=== PATIENT | male | born 1970 | race Caucasian/White ===

== ENCOUNTER 2022-01-05 06:36 | Emergency (ER) | payer BC, SELFPAY ==
[2022-01-05 06:46] VITALS: BP 136/96; PULSE 84; RESP 18; TEMP 35.9; O2SAT 96
--- NOTE | 2022-01-05 06:57 | ED_ITS ---
HPI - General Adult General Time Seen by Provider: 07:07 <Michael Goldman MD - Last Filed: 01/09/22 00:02> Date Seen: 01/05/22 <Michael Goldman MD - Last Filed: 01/09/22 00:02> Chief complaint: Abdominal Pain <Michael Goldman MD - Last Filed: 01/09/22 00:02> Stated complaint: Diarrhea for 5 days/unable to keep anything <Michael Goldman MD - Last Filed: 01/09/22 00:02> Time Seen by Provider: 01/05/22 06:45 <Michael Goldman MD - Last Filed: 01/09/22 00:02> Source: patient <Michael Goldman MD - Last Filed: 01/09/22 00:02> Mode of arrival: ambulatory <Michael Goldman MD - Last Filed: 01/09/22 00:02> Limitations: no limitations <Michael Goldman MD - Last Filed: 01/09/22 00:02> History of Present Illness HPI narrative: 51-year-old male with history of IBS who comes in today with 5 days of diarrhea. Also has some low abdominal cramping. Denies fever or chills. Did have some vomiting at the onset of this but none since. No nausea. Numerous liquid bowel movements daily, no blood in the stools. Denies urinary symptoms. Some lightheadedness and generalized weakness. Has not taken anything for his symptoms. <Michael Goldman MD - Last Filed: 01/09/22 00:02> Related Data Home medications: Previous Rx's Medication Instructions Recorded dicyclomine 10 mg capsule 10 mg PO TID PRN abdominal 01/05/22 cramping #21 caps diphenoxylate-atropine 2.5 1 tab PO DAILY PRN diarrhea #7 tabs 01/05/22 mg-0.025 mg tablet (Lomotil) hydrocodone 5 mg-acetaminophen 325 1 - 2 tab PO Q6H PRN pain #10 tabs 01/05/22 mg tablet <Michael Goldman MD - Last Filed: 01/09/22 00:02> Allergies/adverse reactions: Allergies Allergy/AdvReac Type Severity Reaction Status Date / Time No Known Drug Allergies Allergy Verified 01/05/22 06:50 <Michael Goldman MD - Last Filed: 01/09/22 00:02> Review of Systems Status of ROS: Reports: 10 or more systems reviewed and unremarkable except as noted in History and below <Michael Goldman MD - Last Filed: 01/09/22 00:02> PFSH PFS Social History: Social History Smoking Status: Never smoker Do you use any of these nicotine containing products: None Second hand tobacco smoke exposure: No How often do you have a drink containing alcohol: monthly or less How often do you have six or more drinks on one occasion: Less than monthly AUDIT-C Alcohol total score: 2 Non-prescribed substance use: marijuana (any form) Non-prescribed substance use details: [facility] service: No <Michael Goldman MD - Last Filed: 01/09/22 00:02> Exam Narrative: Exam Narrative: General: Well-developed and well-nourished, no acute distress Head: Atraumatic and normocephalic Eyes: Pupils are equal reactive, extraocular motions intact, conjunctiva clear ENT: External nose and ears are normal, posterior pharynx without erythema or exudate Neck: No midline cervical tenderness, full spontaneous range of motion the neck, trachea midline, no adenopathy Heart: Regular rate and rhythm no murmurs or thrills Lungs: Clear to auscultation bilaterally without wheezes or crackles Abdomen: Soft, suprapubic and left lower quadrant tenderness, nondistended with active bowel sounds Musculoskeletal: No tenderness, deformity, or edema Neurologic: Awake, alert, and oriented x3, no gross focal neurologic deficits, cranial nerves intact as tested Psych: Mood and affect are appropriate Skin: No rashes <Michael Goldman MD - Last Filed: 01/09/22 00:02> Const: Vital Signs, click to edit/add: Vital Signs - 24 hr 01/05/22 06:46 Temperature 96.7 F L Pulse Rate [Left P ulse Oximeter] 84 Respiratory Rate 18 Blood Pressure [Ri ght Upper Arm] 136/96 H Pulse Oximetry 96 Oxygen Delivery Me thod Room Air <Michael Goldman MD - Last Filed: 01/09/22 00:02> Vital Signs, click to edit/add: Vital Signs - 24 hr 01/05/22 06:46 Temperature 96.7 F L Pulse Rate [Left P ulse Oximeter] 84 Respiratory Rate 18 Blood Pressure [Ri ght Upper Arm] 136/96 H Pulse Oximetry 96 Oxygen Delivery Me thod Room Air <Eagle Milian MD - Last Filed: 01/07/22 00:14> Documenting provider has reviewed patient's vital signs: yes <Michael Goldman MD - Last Filed: 01/09/22 00:02> Course Course Hospital Course: Patient seen examined, prior records reviewed. Differential diagnosis includes but not limited to colitis, enteritis, diverticulitis, IBS, inflammatory bowel disease, dehydration, electrolyte disturbance, infectious diarrhea. Patient presents with diarrhea for 5 days. Vomiting initially but none now, also some abdominal cramping. On exam here, vital is stable, suprapubic and left lower quadrant tenderness. Symptoms are most consistent with his IBS but cannot exclude colitis or diverticulitis. Labs, IV fluids, CT scan ordered along with Lomotil. Likely will be signed out to oncoming provider. <Michael Goldman MD - Last Filed: 01/09/22 00:02> Reevaluation(s) Reevaluation #1: Received Mr. Santo in sign-out at change of shift. Following up with him notes that he is improved though I catch him as he is on his way to the bathroom again; another diarrheal episode. There was a question of some ingested bad chicken maybe the day of onset but notes that nobody else was sick who ate the chicken. He says overall he feels better. When his mouth became dry he became worried. Unable to break this episode at home with usual treatments of warm packs and fluids. He has had extensive testing preceding IBS diagnosis. Winces at one point in apparent cramping as we are talking. We discussed a number of treatment options available. I think also reasonable to do stool cultures given what I have seen in the community lately; sample has been collected. <Eagle Milian MD - Last Filed: 01/07/22 00:14> Reevaluation #2: Anticipating discharge home evaluating Mr. Santo again. He is clearly uncomfortable curled up in pain. Discussed options for further pain management considering Bentyl and opiate. In miscommunication IV is prematurely pulled. Ultimately he was given IM injection of Dilaudid prior to departure. <Eagle Milian MD - Last Filed: 01/07/22 00:14> Vital Signs Vital signs: Initial Vital Signs Temperature 96.7 F L 01/05/22 06:46 Temperature Source Temporal Artery Scan 01/05/22 06:46 Pulse Rate 84 01/05/22 06:46 Pulse Rhythm 01/05/22 06:46 Respiratory Rate 18 01/05/22 06:46 Blood Pressure 136/96 H 01/05/22 06:46 Blood Pressure Mean 109 01/05/22 06:46 Blood Pressure Position Sitting 01/05/22 06:46 Pulse Oximetry 96 01/05/22 06:46 Oxygen Delivery Method 01/05/22 06:46 Vital Signs Temperature 96.7 F L 01/05/22 06:46 Pulse Rate 84 01/05/22 06:46 Respiratory Rate 18 01/05/22 06:46 Blood Pressure 136/96 H 01/05/22 06:46 Pulse Oximetry 96 01/05/22 06:46 Oxygen Delivery Method 01/05/22 06:46 Temperature 96.7 F L 01/05/22 06:46 Pulse Rate 84 01/05/22 06:46 Respiratory Rate 18 01/05/22 06:46 Blood Pressure 136/96 H 01/05/22 06:46 Pulse Oximetry 96 01/05/22 06:46 Oxygen Delivery Method 01/05/22 06:46 <Mihcael Goldman MD - Last Filed: 01/09/22 00:02> Initial Vital Signs Temperature 96.7 F L 01/05/22 06:46 Temperature Source Temporal Artery Scan 01/05/22 06:46 Pulse Rate 84 01/05/22 06:46 Pulse Rhythm 01/05/22 06:46 Respiratory Rate 18 01/05/22 06:46 Blood Pressure 136/96 H 01/05/22 06:46 Blood Pressure Mean 109 01/05/22 06:46 Blood Pressure Position Sitting 01/05/22 06:46 Pulse Oximetry 96 01/05/22 06:46 Oxygen Delivery Method 01/05/22 06:46 Vital Signs Temperature 96.7 F L 01/05/22 06:46 Pulse Rate 84 01/05/22 06:46 Respiratory Rate 18 01/05/22 06:46 Blood Pressure 136/96 H 01/05/22 06:46 Pulse Oximetry 96 01/05/22 06:46 Oxygen Delivery Method 01/05/22 06:46 Temperature 96.7 F L 01/05/22 06:46 Pulse Rate 84 01/05/22 06:46 Respiratory Rate 18 01/05/22 06:46 Blood Pressure 136/96 H 01/05/22 06:46 Pulse Oximetry 96 01/05/22 06:46 Oxygen Delivery Method 01/05/22 06:46 <Eagle Milian MD - Last Filed: 01/07/22 00:14> Medical Decision Making MDM Narrative Medical decision making narrative: Did review these CT images and discussed these findings with Mr. Santo IMPRESSION: Mildly dilated fluid-filled loops of small bowel are seen throughout the abdomen. Suspect minimal wall thickening and mucosal enhancement with Vasa recta engorgement involving the colon. There is haziness of the mesentery with subcentimeter scattered lymph nodes which are favored to be reactive. Overall findings are suspicious for nonspecific infectious/inflammatory enterocolitis. There is also swirling at the root of the mesentery near around the superior mesenteric vein which may indicate a new internal hernia although there is no evidence of obstruction. <Eagle Milian MD - Last Filed: 01/07/22 00:14> Medical Records Medical records reviewed: Yes I reviewed the patient's medical records <Michael Goldman MD - Last Filed: 01/09/22 00:02> Lab Data Lab results reviewed: Yes I reviewed the patient's lab results <Michael Goldman MD - Last Filed: 01/09/22 00:02> Labs: Lab Results 01/05/22 01/05/22 01/05/22 Range/Units 07:27 07:27 09:26 WBC 7.14 (4.50-11.00) K/uL RBC 5.32 (4.30-5.90) m/uL Hgb 15.9 (13.5-17.5) gm/dL Hct 46.9 (37.0-53.0) % MCV 88 (80-100) fL MCH 30 (26-34) pg MCHC 34 (32-36) gm/dL RDW Coeff of Madie 11.6 (11.5-15.5) % Plt Count 223 (140-440) K/uL Neut % (Auto) 62.1 (42.0-72.0) % Lymph % (Auto) 26.1 (20-44) % [place] % (Auto) 7.7 (0.0-11.0) % Eos % (Auto) 3.5 (0.0-7.0) % Baso % (Auto) 0.3 (0.0-3.0) % Neut # (Auto) 4.44 (1.7-7.0) K/uL Lymph # (Auto) 1.86 (0.90-2.90) K/uL [place] # (Auto) 0.50 (0.00-0.90) K/UL Eos # (Auto) 0.25 (0.00-0.50) K/uL Baso # (Auto) 0.02 (0.00-0.30) K/uL Abs Immat Gran (auto) 0.02 (0.00-0.30) K/uL Sodium 139 (135-149) mmol/L Potassium 4.1 (3.6-5.1) mmol/L Chloride 107 (96-114) mmol/L Carbon Dioxide 23 (20-32) mmol/L BUN 16 (7-30) mg/dL Creatinine 0.9 (0.5-1.5) mg/dL Estimated GFR 102 ml/min Glucose 108 (60-115) mg/dL Calcium 8.5 (8.4-10.6) mg/dL C-Reactive Protein < 0.5 L (0.5-1.0) mg/dL Stl C.difficile Tox PCR Negative (Negative) St C. diff Tox Epid 027 PRESUMPTIVE NEGATIVE (Negative) <Michael Goldman MD - Last Filed: 01/09/22 00:02> Lab Results 01/05/22 01/05/22 01/05/22 Range/Units 07:27 07:27 09:26 WBC 7.14 (4.50-11.00) K/uL RBC 5.32 (4.30-5.90) m/uL Hgb 15.9 (13.5-17.5) gm/dL Hct 46.9 (37.0-53.0) % MCV 88 (80-100) fL MCH 30 (26-34) pg MCHC 34 (32-36) gm/dL RDW Coeff of Madie 11.6 (11.5-15.5) % Plt Count 223 (140-440) K/uL Neut % (Auto) 62.1 (42.0-72.0) % Lymph % (Auto) 26.1 (20-44) % [place] % (Auto) 7.7 (0.0-11.0) % Eos % (Auto) 3.5 (0.0-7.0) % Baso % (Auto) 0.3 (0.0-3.0) % Neut # (Auto) 4.44 (1.7-7.0) K/uL Lymph # (Auto) 1.86 (0.90-2.90) K/uL [place] # (Auto) 0.50 (0.00-0.90) K/UL Eos # (Auto) 0.25 (0.00-0.50) K/uL Baso # (Auto) 0.02 (0.00-0.30) K/uL Abs Immat Gran (auto) 0.02 (0.00-0.30) K/uL Sodium 139 (135-149) mmol/L Potassium 4.1 (3.6-5.1) mmol/L Chloride 107 (96-114) mmol/L Carbon Dioxide 23 (20-32) mmol/L BUN 16 (7-30) mg/dL Creatinine 0.9 (0.5-1.5) mg/dL Estimated GFR 102 ml/min Glucose 108 (60-115) mg/dL Calcium 8.5 (8.4-10.6) mg/dL C-Reactive Protein < 0.5 L (0.5-1.0) mg/dL Stl C.difficile Tox PCR Negative (Negative) St C. diff Tox Epid 027 PRESUMPTIVE NEGATIVE (Negative) <Eagle Milian MD - Last Filed: 01/07/22 00:14> Discharge Plan Discharge Clinical Impression: History of IBS, Diarrhea <Michael Goldman MD - Last Filed: 01/09/22 00:02> Patient Disposition: Home, Self-Care <Michael Goldman MD - Last Filed: 01/09/22 00:02> Condition: Stable <Michael Goldman MD - Last Filed: 01/09/22 00:02> Instructions: Irritable Bowel Syndrome (ED), Acute Diarrhea (ED) <Michael Godlman MD - Last Filed: 01/09/22 00:02> Additional Instructions: Continue to focus on hydration. I would think that meat in particular would be stressful in your stomach/abdomen. Return for uncontrolled pain, intractable vomiting, associated fever, copious diarrhea such that you are feeling dehydrated, lightheadedness, persistent rapid heart rate. You can trial these medications at this point. Stool cultures will be pending. <Michael Goldman MD - Last Filed: 01/09/22 00:02> Activity Level: No Restrictions <Michael Goldman MD - Last Filed: 01/09/22 00:02> No Restrictions <Eagle Milian MD - Last Filed: 01/07/22 00:14> Discharge Diet: Regular <Michael Goldman MD - Last Filed: 01/09/22 00:02> Regular <Eagle Milian MD - Last Filed: 01/07/22 00:14> Prescriptions: New dicyclomine 10 mg capsule 10 mg PO TID PRN (Reason: abdominal cramping) Qty: 21 0RF diphenoxylate-atropine [Lomotil] 2.5-0.025 mg tablet 1 tab PO DAILY PRN (Reason: diarrhea) Qty: 7 0RF hydrocodone-acetaminophen 5-325 mg tablet 1 - 2 tab PO Q6H PRN (Reason: pain) Qty: 10 0RF <Michael Goldman MD - Last Filed: 01/09/22 00:02> Follow Up/Referrals: Joel Curtis MD [Primary Care Provider] - <Michael Goldman MD - Last Filed: 01/09/22 00:02> Stand Alone Forms: MyHealth Info Instructions <Michael Goldman MD - Last Filed: 01/09/22 00:02>
--- NOTE | 2022-01-05 07:04 | CRLHL7_ITS ---
For Patients: As a result of the Century Cures Act, medical imaging exams and procedure reports are released immediately into your electronic medical record. You may view this report before your referring provider. If you have questions, please contact your health care provider. INDICATION: ABDOMEN PAIN, DIAHRREA HX OF IBS TECHNIQUE: CT abdomen and pelvis with 118 cc Omnipaque 370 IV contrast. COMPARISON: None. FINDINGS: The liver is normal in size, shape and attenuation. Gallbladder and biliary tree are normal. The spleen, adrenal glands and pancreas are within normal limits. The kidneys are unremarkable. The stomach is moderately distended without wall thickening. Mildly dilated fluid-filled loops of small bowel are seen throughout the abdomen. Suspect minimal wall thickening and mucosal enhancement with Vasa recta engorgement involving the colon. There is haziness of the mesentery with subcentimeter scattered lymph nodes which are favored to be reactive. No significant free fluid and no free air. Pelvic organs are unremarkable. The lower chest is unremarkable. IMPRESSION: Mildly dilated fluid-filled loops of small bowel are seen throughout the abdomen. Suspect minimal wall thickening and mucosal enhancement with Vasa recta engorgement involving the colon. There is haziness of the mesentery with subcentimeter scattered lymph nodes which are favored to be reactive. Overall findings are suspicious for nonspecific infectious/inflammatory enterocolitis. There is also swirling at the root of the mesentery near around the superior mesenteric vein which may indicate a new internal hernia although there is no evidence of obstruction. Please note that all CT scans at this facility use dose modulation, iterative reconstruction, and/or weight-based dosing when appropriate to reduce radiation dose to as low as reasonably achievable. Dictated by Tacos Arguello MD @ 01/05/2022 8:14:33 AM (Electronically Signed)
--- NOTE | 2022-01-05 07:30 | ED.NURSE ---
stool sample collected and sent to lab
[2022-01-05 07:34] LABS: Basophils Absolute Auto 0.02 K/uL (0.00-0.30); Basophils Percent Auto 0.3 % (0.0-3.0); Eosinophils Absolute Auto 0.25 K/uL (0.00-0.50); Eosinophils Percent Auto 3.5 % (0.0-7.0); Hematocrit 46.9 % (37.0-53.0); Hemoglobin* 15.9 gm/dL (13.5-17.5); Immature Granulocytes Abs Auto 0.02 K/uL (0.00-0.30); Lymphocytes Absolute Auto 1.86 K/uL (0.90-2.90); Lymphocytes Percent Auto 26.1 % (20-44); Mean Corpuscular HGB Conc 34 gm/dL (32-36); Mean Corpuscular Hemoglobin 30 pg (26-34); Mean Corpuscular Volume 88 fL (80-100); Monocytes Percent Auto 7.7 % (0.0-11.0); Neutrophils Absolute Auto 4.44 K/uL (1.7-7.0); Neutrophils Percent Auto 62.1 % (42.0-72.0); Platelet Count* 223 K/uL (140-440); RDW Coefficient of Variation % 11.6 % (11.5-15.5); Red Blood Count 5.32 m/uL (4.30-5.90); White Blood Count* 7.14 K/uL (4.50-11.00)
[2022-01-05 07:35] LABS: Slide Review Reflex No
[2022-01-05] MEDS: DIPHENOXYLATE-ATROP 2.5-0.025 TABLET 1 TAB PO (07:38)
[2022-01-05] MEDS: 0.9 % SODIUM CHLORIDE 1000 ml 1,000 ML IV (07:39)
[2022-01-05 07:50] LABS: Chloride* 107 mmol/L (96-114); Potassium* 4.1 mmol/L (3.6-5.1); Sodium* 139 mmol/L (135-149)
[2022-01-05 07:52] LABS: Creatinine* 0.9 mg/dL (0.5-1.5); Estimated Glomerular Filt Rate 102 ml/min
[2022-01-05 07:53] LABS: Blood Urea Nitrogen* 16 mg/dL (7-30); Carbon Dioxide* 23 mmol/L (20-32)
[2022-01-05 07:54] LABS: Calcium* 8.5 mg/dL (8.4-10.6); Glucose* 108 mg/dL (60-115)
[2022-01-05 07:56] LABS: C Reactive Protein* < 0.5 mg/dL (0.5-1.0)
[2022-01-05] MEDS: HYDROmorphone 0.5 mg/0.5 ml inj 1 MG IM (10:05)
[2022-01-05 11:21] LABS: C.Difficile Negative (Negative); CDIFFEPI 027 PRESUMPTIVE NEGATIVE (Negative)
== END 2022-01-05 10:10 | disposition home or self-care (01) ==
PROVIDERS: Family Medicine; Emergency Provider Family Medicine; PCP Family Medicine
DX: R19.7 Diarrhea, unspecified (principal)
CPT/HCPCS: 36415; 74177; 80048; 85025; 86140; 87045; 87046; 87427; 87493; 96372; 96374; 99284; 99285; A9270; J1170; J7030; Q9967

== ENCOUNTER 2022-07-29 18:23 | Emergency (ER) | payer BC, SELFPAY ==
[2022-07-29] VITALS (27 sets, daily range): BP systolic 125–154; BP diastolic 75–105; PULSE 69–95; RESP 16–20; TEMP 37.3; O2SAT 93–98; BMI 34.0
[2022-07-29] MEDS: 0.9 % SODIUM CHLORIDE 1000 ml 1,000 ML IV (19:55)
[2022-07-29] MEDS: KETOROLAC 30 MG/ML inj IVP (19:55)
[2022-07-29] MEDS: fentaNYL 100 MCG/2 ML inj 50 MCG IVP (19:56)
[2022-07-29 20:13] LABS: Basophils Absolute Auto 0.03 K/uL (0.00-0.30); Basophils Percent Auto 0.4 % (0.0-3.0); Eosinophils Absolute Auto 0.15 K/uL (0.00-0.50); Hemoglobin* 14.3 gm/dL (13.5-17.5); Immature Granulocytes Abs Auto 0.01 K/uL (0.00-0.30); Immature Granulocytes Pct Auto 0.1 %; Lymphocytes Absolute Auto 2.05 K/uL (0.90-2.90); Lymphocytes Percent Auto 26.9 % (20-44); Mean Corpuscular HGB Conc 36 gm/dL (32-36); Mean Corpuscular Hemoglobin 31 pg (26-34); Mean Corpuscular Volume 87 fL (80-100); Monocytes Percent Auto 8.5 % (0.0-11.0); Neutrophils Absolute Auto 4.72 K/uL (1.7-7.0); Neutrophils Percent Auto 62.1 % (42.0-72.0); Platelet Count* 201 K/uL (140-440); RDW Coefficient of Variation % 11.7 % (11.5-15.5); Red Blood Count 4.61 m/uL (4.30-5.90); White Blood Count* 7.61 K/uL (4.50-11.00)
[2022-07-29 20:30] LABS: Slide Review Reflex No
[2022-07-29 20:33] LABS: Albumin* 4.4 g/dL (3.3-5.0); Chloride* 107 mmol/L (96-114)
[2022-07-29 20:34] LABS: Potassium* 3.9 mmol/L (3.6-5.1); Sodium* 138 mmol/L (135-149)
[2022-07-29 20:36] LABS: Alkaline Phosphatase* 52 U/L (40-150); Aspartate Amino Transferase* 33 U/L (12-35); Bilirubin Direct* 0.2 mg/dL (0.0-0.5); Bilirubin Total* 1.1 mg/dL (0.1-1.5); Carbon Dioxide* 24 mmol/L (20-32); Est. Creatinine Clearance* 89.94; Estimated Glomerular Filt Rate 89 ml/min; Total Protein* 7.5 g/dL (6.0-8.3)
[2022-07-29 20:37] LABS: Alanine Aminotransferase* 33 U/L (4-50); Blood Urea Nitrogen* 17 mg/dL (7-30); Calcium* 8.6 mg/dL (8.4-10.6); Glucose* 92 mg/dL (60-115)
[2022-07-29 20:39] LABS: C Reactive Protein* 0.7 mg/dL (0.5-1.0)
[2022-07-29 20:40] LABS: Appearance Urine Clear (Clear); Bilirubin Urine Negative (Negative); Blood Urine Trace-lysed (Negative); Color Urine Yellow (Yellow); Glucose Urine Negative (Negative); Ketones Urine Negative (Negative); Leukocyte Esterase Urine Negative (Negative); Nitrite Urine Negative (Negative); Protein Urine Negative (Negative); Urobilinogen Urine 0.2 (0.2-1.0); pH Urine 6.5 (5.0-8.5)
[2022-07-29 20:51] LABS: RBC Urine 0-2 (0-2); Squamous Epithelial Cell Urine Few (None-Few); WBC Urine 0-2 (0-5)
[2022-07-29 21:01] LABS: Erythrocyte SedimentationRate* 4 mm/hr (2-15)
--- NOTE | 2022-07-29 21:06 | CRLHL7_ITS ---
For Patients: As a result of the 21st Century Cures Act, medical imaging exams and procedure reports are released immediately into your electronic medical record. You may view this report before your referring provider. If you have questions, please contact your health care provider. INDICATION: h/o k stones, B flank pain, IBS flare w diarrhea, hematochezia TECHNIQUE: CT abdomen and pelvis acquired with 95 cc Isovue 370 IV contrast. COMPARISON: None. FINDINGS: Lower chest: The visualized lower lungs are aerated. No pleural or pericardial effusion. ABDOMEN: Liver: Normal enhancement. No focal suspicious hepatic lesions. Gallbladder and biliary: Normal gallbladder without radiopaque stone. Normal caliber bile ducts. Spleen: Normal size and enhancement. Pancreas: Normal enhancement without peripancreatic inflammatory changes or ductal dilatation. Adrenal glands: Normal adrenal glands. Kidneys and ureters: Normal enhancement. No radio-opaque calculi. No hydroureteronephrosis. GI tract: The stomach is relatively decompressed. Normal caliber small and large bowel loops. Normal appendix. Vascular structures: Normal caliber abdominal aorta. Lymph nodes: No lymphadenopathy in the abdomen or pelvis by size criteria. Peritoneum: No free air, free fluid, or focal drainable fluid collection. Small fat containing left inguinal hernia. Clustered low-attenuation cystic foci just anterior to the body of the pancreas in the mesenteric fat measuring up to 36 millimeters, unchanged and favoring lymphangioma. PELVIS: Genitourinary system: Normal urinary bladder. Normal size prostate. SKELETAL STRUCTURES AND SOFT TISSUES: Multilevel lumbar spondylosis. IMPRESSION: 1. No acute abdominal or pelvic process. No obstruction. No hydroureteronephrosis. Normal appendix. 2. Small direct left fat containing inguinal hernia. 3. Clustered low-attenuation cystic foci just anterior to the body of the pancreas in the mesenteric fat measuring up to 36 millimeters, unchanged, indeterminate however favoring a lymphangioma. This can be confirmed with nonemergent abdominal MRI if clinically warranted. Please note that all CT scans at this facility use dose modulation, iterative reconstruction, and/or weight-based dosing when appropriate to reduce radiation dose to as low as reasonably achievable. Dictated by Eagle Mojica MD @ 07/29/2022 10:03:39 PM (Electronically Signed)
[2022-07-29] MEDS: HYDROmorphone 0.5 mg/0.5 ml inj 1 MG IVP (21:12)
--- NOTE | 2022-07-30 06:07 | ED.GENADULT ---
HPI - General Adult General Chief complaint: Back Injury/Pain Stated complaint: Lower Back Pain Time Seen by Provider: 07/29/22 18:44 History of Present Illness HPI narrative: 52-year-old man accompanied by spouse with concern of quite intense low back pain. Nonradicular. Just can not find a comfortable position. This is been increasing over the last 3 days. Does not recall specific injury; says he is careful with his lifting technique. 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 He has also been having abdominal pain cramping and with bright red blood in some diarrheal stool. Notes a history of IBS. History of kidney stones. He has not noted any hematuria most recently. Attempted ibuprofen acetaminophen without relief. Also spouse helped with application of Biofreeze but that was just more of a distracting pain he says. Pain is not actually affected by movement. Related Data Home Medications Medication Instructions Recorded Confirmed melatonin 3 mg capsule 3 mg PO DAILY 07/29/22 07/29/22 Previous Rx's Medication Instructions Recorded hyoscyamine sulfate 0.125 mg 0.25 mg PO TID PRN abdominal 07/29/22 disintegrating tablet cramping #20 tabs Allergies Allergy/AdvReac Type Severity Reaction Status Date / Time No Known Drug Allergies Allergy Verified 07/29/22 21:42 PFSH PFSH Social History Smoking Status: Never smoker Do you use any of these nicotine containing products: None Second hand tobacco smoke exposure: No How often do you have a drink containing alcohol: monthly or less How often do you have six or more drinks on one occasion: Less than monthly AUDIT-C Alcohol total score: 2 Non-prescribed substance use: marijuana (any form) Non-prescribed substance use details: [facility] service: No Exam Narrative: Exam Narrative: Clearly very uncomfortable, restless. Examination of back indicates area of pain is deep to the low bilateral perispinal musculature. Is not demonstrating notably in pain to percussion or palpation of this area though. Abdomen is generally tender. Soft. No peritoneal signs. Normoactive bowel sounds. Lungs are clear. Heart with elevated rate in irregular rhythm. Skin is warm and dry. Anal exam without evidence of bleeding at this time. Small hemorrhoidal noninflamed tissue at about 11:00 Const: Vital Signs, click to edit/add: Vital Signs - 24 hr 07/29/22 18:29 07/29/22 20:00 07/29/22 20:08 Temperature 99.2 F Pulse Rate 76 Pulse Rate [Pulse Oximeter] 95 79 Respiratory Rate 20 18 Blood Pressure Blood Pressure [Ri ght Upper Arm] 138/91 H 149/99 H Pulse Oximetry 96 94 94 Oxygen Delivery Me thod Room Air 07/29/22 20:15 07/29/22 20:34 07/29/22 20:35 Temperature Pulse Rate 79 79 77 Pulse Rate [Pulse Oximeter] Respiratory Rate 16 Blood Pressure 141/104 H 141/104 H Blood Pressure [Ri ght Upper Arm] Pulse Oximetry 95 96 95 Oxygen Delivery Me thod 07/29/22 20:36 07/29/22 20:45 07/29/22 21:00 Temperature Pulse Rate 76 77 73 Pulse Rate [Pulse Oximeter] Respiratory Rate Blood Pressure Blood Pressure [Ri ght Upper Arm] Pulse Oximetry 96 95 94 Oxygen Delivery Me thod 07/29/22 21:02 07/29/22 21:15 07/29/22 21:31 Temperature Pulse Rate 74 79 77 Pulse Rate [Pulse Oximeter] Respiratory Rate Blood Pressure 126/76 Blood Pressure [Ri ght Upper Arm] Pulse Oximetry 94 95 98 Oxygen Delivery Me thod 07/29/22 21:33 07/29/22 21:45 07/29/22 22:00 Temperature Pulse Rate 74 74 75 Pulse Rate [Pulse Oximeter] Respiratory Rate Blood Pressure 152/98 H Blood Pressure [Ri ght Upper Arm] Pulse Oximetry 98 94 95 Oxygen Delivery Me thod 07/29/22 22:02 07/29/22 22:15 07/29/22 22:30 Temperature Pulse Rate 71 74 72 Pulse Rate [Pulse Oximeter] Respiratory Rate Blood Pressure 125/75 Blood Pressure [Ri ght Upper Arm] Pulse Oximetry 93 93 94 Oxygen Delivery Me thod 07/29/22 22:32 07/29/22 22:45 07/29/22 23:00 Temperature Pulse Rate 73 69 73 Pulse Rate [Pulse Oximeter] Respiratory Rate Blood Pressure 154/95 H Blood Pressure [Ri ght Upper Arm] Pulse Oximetry 95 95 93 Oxygen Delivery Me thod 07/29/22 23:01 07/29/22 23:02 07/29/22 23:15 Temperature Pulse Rate 75 77 75 Pulse Rate [Pulse Oximeter] Respiratory Rate Blood Pressure 149/101 H Blood Pressure [Ri ght Upper Arm] Pulse Oximetry 94 94 94 Oxygen Delivery Me thod 07/29/22 23:30 07/29/22 23:31 07/29/22 23:45 Temperature Pulse Rate 72 72 71 Pulse Rate [Pulse Oximeter] Respiratory Rate Blood Pressure 154/105 H Blood Pressure [Ri ght Upper Arm] Pulse Oximetry 95 96 95 Oxygen Delivery Me thod Documenting provider has reviewed patient's vital signs: yes Course Vital Signs Vital signs: Initial Vital Signs Temperature 99.2 F 07/29/22 18:29 Temperature Source Temporal Artery Scan 07/29/22 18:29 Pulse Rate 95 07/29/22 18:29 Respiratory Rate 20 07/29/22 18:29 Blood Pressure 138/91 H 07/29/22 18:29 Blood Pressure Mean 106 H 07/29/22 18:29 Blood Pressure Position Sitting 07/29/22 18:29 Pulse Oximetry 96 07/29/22 18:29 Oxygen Delivery Method Room Air 07/29/22 18:29 Vital Signs Temperature 99.2 F 07/29/22 18:29 Pulse Rate 95 07/29/22 18:29 Respiratory Rate 20 07/29/22 18:29 Blood Pressure 138/91 H 07/29/22 18:29 Pulse Oximetry 96 07/29/22 18:29 Oxygen Delivery Method Room Air 07/29/22 18:29 Temperature 99.2 F 07/29/22 18:29 Pulse Rate 71 07/29/22 23:45 Respiratory Rate 16 07/29/22 20:34 Blood Pressure 154/105 H 07/29/22 23:31 Pulse Oximetry 95 07/29/22 23:45 Oxygen Delivery Method Room Air 07/29/22 18:29 Medical Decision Making MDM Narrative Medical decision making narrative: I suspect flare of IBS contributing to generalized abdominal pain. Imaging prior that I reviewed was relatively unremarkable. Difficult to reproduce back pain. No clear traumatic etiology. Wondering if this is simply tension. Will evaluate further for red flags looking for evidence of potential infection. Possibly ureteral stone and colic however do not think the story is so good for that and symmetry is unusual. Colitis possible. Pancreatitis. Inflammatory bowel disorder. IV initiated. Dosed with ketorolac and given normal saline IV. Pain sub present and given dosing of fentanyl. This does offer some pain relief but did return. Given ultimately dose of Dilaudid. Able to rest. Labs are overall reassuring. Only trace amount of blood on urine dipstick. With degree of discomfort had been having duration I do not think it is unreasonable to check again CT imaging. About my read of CT imaging and most impressed with osteoarthritic changes of the low spine loss of disc height between L5 and sacrum. I wonder if some of this pain is related to the low back/musculoskeletal though it is not reproducible with movement really. Radiology over-read as below IMPRESSION: 1. No acute abdominal or pelvic process. No obstruction. No hydroureteronephrosis. Normal appendix. 2. Small direct left fat containing inguinal hernia. 3. Clustered low-attenuation cystic foci just anterior to the body of the pancreas in the mesenteric fat measuring up to 36 millimeters, unchanged, indeterminate however favoring a lymphangioma. This can be confirmed with nonemergent abdominal MRI if clinically warranted. I discussed these findings and lack there of with Mr. Santo and his . Overall improved. I think IBS flare is possibly contributing to spasming of abdominal wall and potentially back musculature. See patient discharge plan. Lab Data Lab results reviewed: Yes I reviewed the patient's lab results Labs: Lab Results 07/29/22 07/29/22 Range/Units 19:41 20:00 WBC 7.61 (4.50-11.00) K/uL RBC 4.61 (4.30-5.90) m/uL Hgb 14.3 (13.5-17.5) gm/dL Hct 40.0 (37.0-53.0) % MCV 87 (80-100) fL MCH 31 (26-34) pg MCHC 36 (32-36) gm/dL RDW Coeff of Madie 11.7 (11.5-15.5) % Plt Count 201 (140-440) K/uL Neut % (Auto) 62.1 (42.0-72.0) % Lymph % (Auto) 26.9 (20-44) % Adams % (Auto) 8.5 (0.0-11.0) % Eos % (Auto) 2.0 (0.0-7.0) % Baso % (Auto) 0.4 (0.0-3.0) % Neut # (Auto) 4.72 (1.7-7.0) K/uL Lymph # (Auto) 2.05 (0.90-2.90) K/uL Adams # (Auto) 0.60 (0.00-0.90) K/UL Eos # (Auto) 0.15 (0.00-0.50) K/uL Baso # (Auto) 0.03 (0.00-0.30) K/uL ESR 4 (2-15) mm/hr Sodium 138 (135-149) mmol/L Potassium 3.9 (3.6-5.1) mmol/L Chloride 107 (96-114) mmol/L Carbon Dioxide 24 (20-32) mmol/L BUN 17 (7-30) mg/dL Creatinine 1.0 (0.5-1.5) mg/dL Estimated Creat Clear 89.94 Estimated GFR 89 ml/min Glucose 92 (60-115) mg/dL Calcium 8.6 (8.4-10.6) mg/dL Total Bilirubin 1.1 (0.1-1.5) mg/dL Direct Bilirubin 0.2 (0.0-0.5) mg/dL AST 33 (12-35) U/L ALT 33 (4-50) U/L Alkaline Phosphatase 52 (40-150) U/L C-Reactive Protein 0.7 (0.5-1.0) mg/dL Total Protein 7.5 (6.0-8.3) g/dL Albumin 4.4 (3.3-5.0) g/dL Urine Color Yellow (Yellow) Urine Appearance Clear (Clear) Urine pH 6.5 (5.0-8.5) Ur Specific [place] 1.020 (1.000-1.030) Urine Protein Negative (Negative) Urine Glucose (UA) Negative (Negative) Urine Ketones Negative (Negative) Urine Blood Trace-lysed A (Negative) Urine Nitrite Negative (Negative) Urine Bilirubin Negative (Negative) Urine Urobilinogen 0.2 (0.2-1.0) Ur Leukocyte Esterase Negative (Negative) Urine RBC 0-2 (0-2) Urine WBC 0-2 (0-5) Ur Squamous Epith Cells Few (None-Few) Urine Bacteria None (None) Discharge Plan Discharge Clinical Impression: Low back pain, Lymphangioma, Abdominal pain Patient Disposition: Home w/ Parent or Adult Condition: Improved Instructions: Abdominal Pain (ED) Additional Instructions: Focus on hydration. I would call to reestablish in primary care partly to get that colonoscopy scheduled and then consider follow-up imaging as noted in the report of the abdominal CT you have. Think it would be good to be seen to discuss treatments and prevention of irritable bowel flares. On follow-up you might also recheck urine though it is such a small amount of blood was noted on the dipstick, hard to quantify any significance. Return for intractable diarrhea, increasing bleeding, uncontrolled pain, associated fever. Percocet from [facility]. Hyoscyamine for cramps. Prescriptions: New hyoscyamine sulfate 0.125 mg tablet,disintegrating 0.25 mg PO TID PRN (Reason: abdominal cramping) Qty: 20 0RF No Action melatonin 3 mg capsule 3 mg PO DAILY Follow Up/Referrals: oJel Curtis MD [Primary Care Provider] - Stand Alone Forms: [employer] Info Instructions
== END 2022-07-30 | disposition home or self-care (01) ==
PROVIDERS: Emergency Provider Family Medicine; PCP Family Medicine
DX: M54.50 Low back pain, unspecified (principal); D18.1 Lymphangioma, any site
CPT/HCPCS: 36415; 74177; 80048; 80076; 81001; 85025; 85651; 86140; 96374; 96375; 99284; J1170; J1885; J3010; J7030; Q9967

== ENCOUNTER 2022-10-23 06:43 | Outpatient (CLI) | payer BC, SELFPAY ==
--- NOTE | 2022-10-23 07:16 | P.ANHP_ITS ---
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 (ICD-10) PTSD (post-traumatic stress disorder) ?F43.10 - Post-traumatic stress disorder, unspecified (ICD-10) Anxiety ?F41.9 - Anxiety disorder, unspecified (ICD-10) ADD (attention deficit disorder) ?F98.8 - Other specified behavioral and emotional disorders with onset us ually occurring in childhood and adolescence (ICD-10) IBS (irritable bowel syndrome) ?K58.9 - Irritable bowel syndrome without diarrhea (ICD-10) Social History Smoking Status: Never smoker Do you use any of these nicotine containing products: None Second hand tobacco smoke exposure: No How often do you have a drink containing alcohol: monthly or less How often do you have six or more drinks on one occasion: Less than monthly AUDIT-C Alcohol total score: 2 Non-prescribed substance use: marijuana (any form) Non-prescribed substance use details: [facility] service: No Meds Home Medications and Allergies Home Medications Medication Instructions Recorded Confirmed Type melatonin 3 mg capsule 3 mg PO DAILY 07/29/22 08/21/22 History Allergies Allergy/AdvReac Type Severity Reaction Status Date / Time No Known Drug Allergies Allergy Verified 08/20/22 13:04 Exam Const Documenting provider has reviewed patient's vital signs: yes Common normals: no apparent distress, oriented x3, healthy appearing, alert and well nourished General appearance: cooperative and comfortable Orientation/consciousness: Yes awake HENMT Common normals: normocephalic Head and scalp: normocephalic Neck & C-Spine Common normals: full ROM Chest Chest: symmetrical chest wall rise Resp Common normals: normal respiratory effort, no retractions, no use of accessory muscles and clear to auscultation bilaterally Auscultation: clear to auscultation bilaterally Cardio Common normals: regular rate, regular rhythm, S1 normal heart sound, S2 normal heart sound and no murmurs Rate: regular rate Rhythm: regular rhythm Heart sounds: S1 normal and S2 normal Neuro Common normals: oriented x3 Sensorium/orientation: awake and alert Assessment and Plan Assessment and plan (1) IBS (irritable bowel syndrome): Status: Acute (2) Personal history of colonic polyps: Status: Acute Plan ok to proceed with colonoscopy and sedation
--- NOTE | 2022-10-23 07:16 | W.ANESCHARGE ---
Anesthesia Charges Start Date/Time Anesthesia Start Date: 10/23/22 Anesthesia Start Time: 07:45 Stop Date/Time Anesthesia Stop Date: 10/23/22 Anesthesia Stop Time: 08:08
--- NOTE | 2022-10-23 08:10 | W.ANESCHARGE ---
Anesthesia Charges Start Date/Time Anesthesia Start Date: 10/23/22 Anesthesia Start Time: 07:45 Stop Date/Time Anesthesia Stop Date: 10/23/22 Anesthesia Stop Time: 08:08
== END 2022-10-23 06:44 | disposition home or self-care (01) ==
LOC: OP CLINIC 06:43
PROVIDERS: PCP Family Medicine; Visit Provider Internal Medicine
DX: Z12.11 Encounter for screening for malignant neoplasm of colon (principal); K63.5 Polyp of colon; Z86.010 Personal history of colon polyps
CPT/HCPCS: 00811; 45380; 88305; J2704

== ENCOUNTER 2023-05-17 10:41 | Outpatient (RCR) | payer BC, SELFPAY | END 2023-09-14 23:59 | disposition home or self-care (01) | PROVIDERS: PCP Family Medicine; Visit Provider Family Medicine | DX: M54.2 Cervicalgia (principal); R29.3 Abnormal posture; Z51.89 Encounter for other specified aftercare; Z74.09 Other reduced mobility; R29.898 Other symptoms and signs involving the musculoskeletal system | CPT/HCPCS: 97110; 97140; 97162 ==

== ENCOUNTER 2023-06-24 08:10 | Outpatient (CLI) | payer BC, SELFPAY | END 2023-06-24 08:11 | disposition home or self-care (01) | LOC: NFLDREF 06-30 12:20 | PROVIDERS: PCP Family Medicine; Referring Provider Family Medicine; Visit Provider Family Medicine | DX: K58.9 Irritable bowel syndrome, unspecified (principal); N52.9 Male erectile dysfunction, unspecified; R79.89 Other specified abnormal findings of blood chemistry | CPT/HCPCS: 80053; 84270; 84402; 84403 ==

== ENCOUNTER 2023-11-09 19:03 | Outpatient (CLI) | payer BC, SELFPAY ==
--- OUTSIDE RECORDS SUMMARY | 2023-11-09 19:06 | XMS_ITS | Clinical Summary ---
Author Organization [facility] Address [place], [place] [address] Care Team Providers Care Mustanger Name Role Phone Parmjit Mcgregor MD Unavailable [phone] Essie Fernandez GUARD ENTRANCE REGISTRAR Unavailable Unavailable Pcp, No Primary Care Provider Unavailabl e Allergies Active Allergy Reactions Criticality Noted Date Comments Other Ellsworth-3s Other - Describe In Comment Field 04/02/2006 PN: TAMI CM1: >>> NO CONTRAST ADVERSE REACTION <<< Reaction : Medications Medication Sig Dispensed Refills Start Date End Date Status omeprazole-sodium bicarbonate, 20-1100 mg, (ZEGERID OTC) 20-1.1 mg-gram cap Take 1 capsule by mouth once daily before a meal. 0 01/09/2014 Active multivitamin (MVI) tablet Take 1 tablet by mouth once daily. 0 04/09/2016 Active Fish Oil-Ellsworth-3 Fatty Acids (FISH OIL) 300-500 mg cap Take by mouth. 0 11/16/2017 A ctive Bifidobacterium Infantis (ALIGN) cap Take 1 capsule by mouth. 0 08/14/2019 Active ascorbic acid, vitamin C, (VITAMIN C) 250 mg tablet Take 1 tablet by mouth once daily. 0 04/19/2020 Active cholecalciferol (Vitamin D) 1,000 unit tablet Take 1 Tablet (1,000 units) by mouth once daily. 0 07/17/2020 Active CPAPIndications:AMISH (obstructive sleep apnea) New CPAP machine for home use at pressure: 5-18 cmw , Heated humidifier x 1 q 5 yr, Humidifier chamber x 1 q 6 mo, Full face mask x1 q 3mos, with cushion x 1 q mo, Heated tubing x 1 q 3 mo, Headgear x 1 q 6 mo, Filters: Disposable x 2 q mo non-disposable filters x1 q 6mo, Length of Need: 99 months, Frequency of use: Daily 1 Device 11 07/17/2020 Active LORazepam (ATIVAN) 2 mg tabIndications:PTSD (post-traumatic stress disorder) Take 0.5-1 Tablets (1-2 mg) by mouth once daily if needed for Anxiety or Sleep. 30 Tablet 2 09/26/2020 Active ibuprofen (ADVIL; MOTRIN) 800 mg tabletIndications:A cute bilateral low back pain without sciatica Take 1 Tablet (800 mg) by mouth three times daily with meals. 30 Tablet 1 07/31/2022 Active Active Problems Problem Noted Date Diagnosed Date Elevated blood pressure read ing without diagnosis of hypertension 10/16/2021 Hyperopia of both eyes 02/24/2019 Insomnia 10/27/2018 Overview: July 2019: Patient self stopped mirtazapine. History of syncope 10/11/2018 Overview: October 2018: Syncope in home, [facility] work up. Carpal tunnel syndrome, bilateral 08/24/2018 Overview: EMG August 2018 shows moderate to severe bilateral carpal tunnel mononeuropathy changes. Hypertriglyceridemia 07/28/2018 Erectile dysfunction 07/28/2018 Overview: July 2018: new diagnosis, symptoms started about the time of starting sertraline (Zoloft). Starting revatio. (Sildenafil). Controlled substance agreement signed 03/24/2018 Overview: 03/01/18 signed .Essie Fernandez DNP, [employer]FRICAN [employer]UD[employer] PROFESSOR, BUTTON MAKER/psychiatry ADHD (attention deficit hype ractivity disorder), combined type 03/01/2018 Overview: Jan [address] Thomas for formal ADHD assessment and testing did support a diagnosis of ADHD, combined type. Essie Fernandez, BUTTON MAKER started Adderall XR Feb 2018. Attention and concentration deficit 11/16/2017 Nightmares associated with c hronic post-traumatic stress disorder 01/18/2017 Insomnia secondary to depression with anxiety Overview: July 2019: Patient stopped mirtazapine. PTSD (post-traumatic stress disorder) 04/09/2016 Overview: July 2019: Patient self tapered sertraline (Zoloft) to off completely. Also self stopped mirtazapine. September 2019: therapy visits with [facility], Camron Rodrigues P.H.D.,M.P.H., AMELIA (generalized anxiety disorder) 04/09/2016 Overview: July 2019: Patient self tapered sertraline (Zoloft) to off completely. Also self stopped mirtazapine. September 2019: therapy visits with [facility], Camron Rodrigues P.H.D.,M.P.H[facility] Lateral epicondylitis of left elbow 03/01/2015 Overview: Cortisone injection Jan 2015, 1 month out pain 90% improved. May 2015: Colleen did bilateral lateral epicondyle injections. August 2015: Bilateral lateral epicondyle injections by Dr. Mitch Macias. Anxiety 09/20/2014 Overview: Symptoms of anxiety and medications around 2004 or so. September 2014: starting sertraline (Zoloft). Nov 2015: doubled sertraline (Zoloft) to 100mg and referred to both psychology and psychiatry. July 2019: Patient self tapered sertraline (Zoloft) to off completely. Also self stopped mirtazapine. September 2019: therapy visits with [facility], Camron Rodrigues P.H.D.,M.P.H[facility] Personal history of colonic polyps 04/13/2013 Overview: Colonoscopy 05/2013 polyps repeat in 5 years Colonoscopy Done , unusual MAC at [facility] by Dr. Eden, adenomatous polyp, due 5 years, so due August 2023. Rectal bleeding 04/13/2013 Overview: Flexible sigmoidoscopy- 07/2013 1 cm of erythema- mechanical prolapse Presbyopia 04/19/2009 Encounters Date Type Department Care Team Description 10/12/2023 3:20 PM CDT Office Visit [facility] [address] [place] [address] Dick Meier, OD Eye Exam ([facility]) 10/12/2023 Travel 10/01/2023 Transcribe Orders [facility] [address] [place] [address] [place] from Last 3 Months Immunizations Name Administration Dates Next Due HepA-HepB (Twinrix) 06/09/2007,05/11/2007 Inactivated Polio Vaccine 05/11/2007 Influenza Virus, Unspecified 03/15/2007,01/23/20 06 Influenza, IIV3 (Age 6-35 mos) 01/23/2010 Influenza, IIV4 02/25/2020, 9,12/09/2015,12/10,01/09/2014 Meningococcal Vaccine (Menactra) 04/14/2007 Meningococcal Vaccine (Menomune) 04/14/2007 Td (Age >=7 Years) 07/21/1999 Td, Preservative Free (age >= 7 Years) 8 Tdap 04/13/2019,01/09/2014,04/14/2007 Typhoid (oral) 05/11/2007 Family History Medical History Relation Name Comments Cancer Father Lung, was smoke r Heart attack Maternal Grandfather Arthritis Mother RA Psychiatric illness Mother Anxiety and Depression. Diabetes Paternal Grandmother Arthritis Sister RA Relation Name Status Comments Father Maternal Grandfather Mother Alive Paternal Grandmother Sister Alive Social History Tobacco Use Types Packs/Day Years Used Date Smoking Tobacco: Never Smokeless Tobacco: Former Snuff, Chew Quit: 07/07/2018 Tobacco Cessation:Ready to Q uit: No; Counseling Given: Yes Alcohol Use Standard Drinks/Week Comments Yes 0 (1 standard drink = 0.6 oz pure alcohol) Infrequently/occational, 2020, social PHQ-2 Answer Date Recorded PHQ-2 TOTAL SCORE 2 10/16/2021 Social Connections Answer Date Recorded Frequency of Communication with Friends and Fami ly Not on file 08/05/2023 Financial Resource Strain Answer Date R ecorded Difficulty of Paying Living Expenses 3 07/31/2022 Difficulty of Paying Living Expenses Not on file 07/31/2022 Food Insecurity Answer Date Recorded Worried About Running Out of Food in the Last Ye ar 1 07/31/2022 Transportation Needs Answer Date Record ed Lack of Transportation (Medical) 1 07/31/2022 Housing Stability Answer Date Recorded Unable to Pay for Housing in the Last Year 1 07/31/2022 Sex and Gender Information Value Date Recorded Sex Assigned at Not on file Gender Identity Not on file Sexual Orientation Not on file Obstetrics History Last Filed Vital Signs Vital Sign Reading Time Taken Comments Blood Pressure 138/84 07/31/2022 1:45 PM CDT Pulse 88 07/31/2022 1:42 PM CDT Temperature 36.8 ??C (98.2 ??F) 04/13/2019 9:11 PM CS T Respiratory Rate 18 04/13/2019 9:11 PM TERMITE CONTROL REPRESENTATIVE Oxygen Saturation 95% 04/13/2019 9:11 PM TERMITE CONTROL REPRESENTATIVE Inhaled Oxygen Concentration - - Weight 109.3 kg (240 lb 14.4 oz) 07/31/2022 1:42 PM CDT Height 177.8 cm (5' 10) 07/31/2022 1:42 PM CDT Body Mass Index 34.57 07/31/2022 1:42 PM CDT Plan of Treatment Health Maintenance Due Date Last Done Comments HIV for age 15-65 1983 Zoster (shingles) series for age 50+ (1 of 2) 2018 Depression screening for age 12+ 10/16/2022 10/16/2021, 09/26/2020, 09/26/2020, Additional history exists COVID-19 vaccine series ( season) 2022 BMI (ht and wt on same day) for age 18+ 08/01/2023 07/31/2022, 12/05/2021, 10/16/2021, Additional history exists Colonoscopy through age 75 08/13/2023 08/12/2018, Influenza for age 50-64 12/12/2023 02/25/20 20, 02/24/2019, 12/09/2015, Additional history exists Lipids for age 45-75 10/16/2026 10/16/2021, 05/10/2020, 07/21/2018, Additional history exists Tetanus booster 04/13/2029 04/13/2019, 12/13, 04/14/2007, Additional history exists Tdap Completed 04/13/2019, 12/13, 04/14/2007 Hepatitis C screening for age 18-79 Completed 10/16/2021 Pneumococcal series for age 6-64 Aged Out No longer eligible based on patient's age to complete this topic Procedures Procedure Name Priority Date/Time Associated Diagnosis Comments ANTI HCV Routine 10/16/2021 8:29 AM CDT Need for hepatitis C screening test LIPID PANEL W REFLEX MEASURED LDL Routine 10/16/2021 8:29 AM CDT Screening cholesterol level SCAN-COLONOSCOPY 08/12/2018 11:3 0 AM CDT from Last 3 Months or Most Recently Relevant to Health Maintenance Results * (ABNORMAL) LIPID PANEL W REFLEX MEASURED LDL (10/16/2021 8:29 AM CDT) CHOLESTEROL,TOTAL 134 100 - 199 mg/dL 10/16/2021 7:24 PM CDT [facility] TRIGLYCERIDES 83 <150 mg/dL 10/16/2021 7:24 PM CDT [facility] HDL CHOLESTEROL 39(L) >40 mg/dL 7:24 PM CDT [facility] NON-HDL CHOLESTEROL 95 <145 mg/dl 10/16/2021 7:24 PM CDT [facility] CHOL/HDL RATIO 3.44 <4.50 10/16/2021 7:24 PM CDT [facility] LDL CHOLESTEROL 78 <=130 mg/dL 10/16/2021 7:24 PM CDT [facility] VLDL CHOLESTEROL 17 <=30 mg/dL 10/16/2021 7:24 PM CDT [facility] PROVIDER ORDERED STATUS FASTING 10/16/2021 7:24 PM CDT [facility] Blood BLOOD SPECIMEN / Unknown Venipuncture / Unknown 10/16/2021 8:29 AM CDT 10/16/2021 8:29 AM CDT Joel Curtis MD [facility]STR[facility] [address] [place] [id number], [place] * ANTI HCV (10/16/2021 8:29 AM CDT) HEPATITIS C ANTIBODY Non-React dequan Non-React dequan 10/16/2021 6:30 PM CDT [facility] Comment:Antibodies to HCV no t detected; does not exclude the possibility of exposure to HCV. Blood BLOOD SPECIMEN / Unknown Venipuncture / Unknown 10/16/2021 8:29 AM CDT 10/16/2021 8:29 AM CDT Joel Curtis MD SEND OUTS Performing Organization Address City/[facility]/ZIP Co de Phone Number [facility] [address] [place] [phone], [place] * SCAN-COLONOSCOPY (08/12/2018 11:30 AM CDT) Narrative Procedure Note Kevin Eden MD - 08/12/2018 10:28 AM CDT [facility] [address] [place] [address], [address], [place] [address] Patient Name: Taurus Santo Gender: Male Exam Date: 08/12/2018 Visit Number: [id number] Age: 48 Years Date of : 1970 Attending MD: Kevin Eden MD Medical Record#: [id number] Procedure: Colonoscopy Indications: Previous adenomatous polyp(s) Referring MD: Joel Curtis MD Primary MD: Joel Curtis MD Medications: Admitting Medications: 0.9% Normal Saline at TKO Intra Procedure Medications: Patient received monitored anesthesia care. Complications: No immediate complications Procedure: An examination of the heart and lungs was performed and found to be withinacceptable limits. The patient was therefore deemed a reasonablecandidate for endoscopy and sedation. The risks and benefits of the procedure were explained to the patient.After obtaining informed consent, the patient received monitoredanesthesia care and I passed the scope without difficulty via the rectum to the ileum. The appendiceal orificeand ic valve were identified. The scope was retroflexed during theexamination The quality of the prep was excellent (Miralax/Gatorade/2tablets Bisacodyl/Magnesium Citrate). This was a complete examination throughout the entire colon. Findings: Polyp location: transverse colon. Quantity: 1. Size: 3 mm. Polyp shape:sessile. Maneuver: polypectomy was performed with a cold biopsy forceps. Removal: complete. Retrieval: complete. Bleeding: none. Remainder of the exam is normal. Impression: Polyp of transverse colon, unspecified type impression comments: [facility] [address] [facility] single [facility]. Flexsig [place] [address] Iglesias, distalproctitis by endoscopy, no inflammation on biopsies. Preliminary Plan: Repeat colonoscopy in 5 years Pathology Results: A: COLON, TRANSVERSE, POLYP: 1. Tubular adenoma 2. Negative for high grade dysplasia 3. Per the colonoscopy report: a. Polyp size: 3 mm b. Resection: Complete c. Retrieval: Complete MICROSCOPIC A: Performed Electronically signed by: Juan R Bowman MD Orders Instruction(s)/Education: Instruction/Education Timeframe Assessment Colon Cancer Prevention D12.3 Colon Polyps D12.3 Final Plan: Return for a colonoscopy in 5 years. We will attempt to contact you at appropriate intervals via U.S. mail. Wemay not be able to find you or contact you at that time, therefore youshould know that the responsibility for following our recommendation restswith you. If you don't hear from us at the time your procedure is due,please contact our office to schedule an appointment. If your contactinformation should change, please contact our office so that we can updateyour record. Additional Comments: The small polyp removed at your colonoscopy was an adenoma. I wouldrecommend a repeat colonoscopy therefore in 5 years. Be well. _Electronically signed by: Kevin Eden MD 08/12/2018 cc: Joel Curtis MD cc: Joel Curtis MD Kevin Eden MD OTHER from Last 3 Months or Most Recently Relevant to Health Maintenance Care Teams Mustanger Relationship Specialty Start Date End Date Pcp, No . PCP - General 07/15/22 Parmjit Mcgregor MD [address] [place] [address] Rheumatology Rheumatology 05/10/15 Essie Fernandez NP [address] [place] [address] Psychiatry Nurse Practitioner 04/10/16
--- OUTSIDE RECORDS SUMMARY | 2023-11-09 19:06 | XMS_ITS | Clinical Summary ---
Author Organization [facility] Address [address] [place] [id number] Care Team Providers Care Commercial Credit Head Name Role Phone Davide Long MD Primary Care Provider [phone] Allergies No known active allergies Medications Medication Sig Dispensed Refills Start Date End Date Status amphetamine-dextroamph etamine (ADDERALL) 30 MG tabletIndications:Atte ntion Deficit Hyperactivity Disorder Take 30 mg by mouth daily Active omeprazole-sodium bicarbonate 20-1100 MG CAPS per capsule Take by mouth every morning (before breakfast) Active Multiple Vitamins-Minerals (MULTIVITAL PO) Active ciprofloxacin (CIPRO) 500 MG tabletIndications:Cyst ic lesion of abdominal viscera Take 1 tablet (500 mg) by mouth 2 times daily 10 tablet 11/20/2022 Active Social History Tobacco Use Types Packs/Day Years Used Date Smoking Tobacco: Former Cigarettes Smokeless Tobacco: Former Alcohol Use Standard Drinks/Week Comments Yes 0 (1 standard drink = 0.6 oz pur e alcohol) weekends Adolescent Education Answer Date Record ed Getting School Help Needed Not on file 01/24 Sex and Gender Information Value Date Recorded Sex Assigned at Not on file Gender Identity Not on file Sexual Orientation Not on file Last Filed Vital Signs Vital Sign Reading Time Taken Comments Blood Pressure 121/72 11/20/2022 2:10 PM CDT Pulse 66 11/20/2022 2:15 PM CDT Temperature - - Respiratory Rate 9 11/20/2022 2:15 PM CDT Oxygen Saturation 93% 11/20/2022 2:15 PM CDT Inhaled Oxygen Concentration - - Weight 107 kg (235 lb 14.3 oz) 11/20/2022 12:46 PM CDT Height 177 cm (5' 9.69) 11/20/2022 12:46 PM CDT Body Mass Index 34.15 11/20/2022 12:46 PM CDT Plan of Treatment Upcoming Encounters Date Type Department Care Team (Latest Contact Info) Description 11/12/2023 2:00 PM CDT Hospital Encounter [facility] [address] [phone] Johana Mcdonald MD [facility] [address] [place] [address] [address] [id number] 11/12/2023 2:00 PM CDT - 11/12/2023 2:45 PM CDT Surgery [facility] [address] [phone] Johana Mcdonald MD [facility] [address] [place] [address] [address] [address] Endoscopic Ultrasound with Fine Needle Aspiration Scheduled Procedures Name Priority Associated Diagnoses Date/Ti me ESOPHAGOGASTRODUODENOSCOPY, WITH FINE NEEDLE ASPIRATION BIOPSY, WITH ENDOSCOPIC ULTRASOUND GUIDANCE Pancreatic cyst 11/12/2023 2:00 PM CDT Health Maintenance Due Date Last Done Comments ADVANCE CARE PLANNING 1970 ANNUAL REVIEW OF HM ORDERS 1970 CT COLONOGRAPHY 1970 FIT 1970 FLEX SIG 1970 GLUCOSE 1970 sDNA (Cologuard) 1970 COLONOSCOPY 1978 COLORECTAL CANCER SCREENING 1978 HIV SCREENING 1983 HEPATITIS C SCREENING 1986 IPV IMMUNIZATION (2 of 3 - Adult catch-up series) 06/08/2007 05/11/2007 HEPATITIS B IMMUNIZATION (3 of 3 - Hep B Twinrix 3-dose series) 11/09/2007 06/09/2007, 05/11/2007 LIPID 2008 LUNG CANCER SCREENING 2018 ZOSTER IMMUNIZATION (1 of 2) 2018 YEARLY PREVENTIVE VISIT 10/16/2022 10/16/2021, 04/19 COVID-19 Vaccine ( season) 2022 PHQ-2 (once per calendar year) 2023 INFLUENZA VACCINE (#1) 2023 0, 02/24/2019, 12/09/2015, Additional history exists DTAP/TDAP/TD IMMUNIZATION (5 - Td or Tdap) 04/13/2029 04/13/2019, 01/09/2014, 04/14/2007, Additional history exists MENINGITIS IMMUNIZATION Aged Out 04/14/2007, 04/14 No longer eligible based on patient's age to complete this topic HPV IMMUNIZATION Aged Out No longer e ligible based on patient's age to complete this topic Pneumococcal Vaccine: Pediatrics (0 to 5 Years) and At-Risk Patients (6 to 64 Years) Aged Out No longer eligible based on patient's age to complete this topic RSV MONOCLONAL ANTIBODY Aged Out No l onger eligible based on patient's age to complete this topic Care Teams Commercial Credit Head Relationship Specialty Start Date End Date Davide Long MD PCP - General Family Medicine 10/27/23
--- OUTSIDE RECORDS SUMMARY | 2023-11-09 19:06 | XMS_ITS | Referral Summary ---
Author Organization [facility] Address [address] [place] [address] Care Team Providers Care Mixer Operator Raw Salt Name Role Phone Davide Long MD Primary Care Provider [phone] Allergies No known active allergies Medications Medication [...] Description 11/12/2023 2:00 PM CDT Hospital Encounter [facility] [address] [phone] Johana Mcdonald MD [facility] [address] [place] [address] [address] [address] 11/12/2023 2:00 PM CDT - 11/12/2023 2:45 PM CDT Surgery [facility] [address] [phone] Johana Mcdonald MD [facility] [address] [place] [address] [address] [address] Endoscopic Ultrasound with Fine Needle Aspiration Scheduled Procedures Name Priority Associated Diagnoses Date/Ti me ESOPHAGOGASTRODUODENOSCOPY, WITH FINE NEEDLE ASPIRATION BIOPSY, WITH ENDOSCOPIC ULTRASOUND GUIDANCE Pancreatic cyst 11/12/2023 2:00 PM CDT Care Teams Mixer Operator Raw Salt Relationship Specialty Start Date End Date Davide Long MD PCP - General Family Medicine 10/27/23
--- OUTSIDE RECORDS SUMMARY | 2023-11-09 19:06 | XMS_ITS | Continuity of Care Document ---
Author Name [facility] Organization [facility] Care Team Providers Care [employer] Assistant Manager Name Role Phone [facility] Unavailable Unavailable Problems Combined list of problems from Department of Defense and Veterans [facility] facilities. It does not include entries that were removed or entered in error. Problem Status Onset Date Problem Type Date of Resolution Comments Source Allergic Rhinitis (SCT 32130751) Active Condition [facility] Anxiety (SCT 16509109) Active Condition [facility] Attention Deficit Hyperactivity Disorder (SCT 322282692) Active Condition [facility] Chronic pain Active Condition [facility] Chronic Post-Traumatic Stress Disorder (SCT 005810934) Active Condition [facility] Essential hypertension Active Condition [facility] Exposure to potentially hazardous substance (SCT 131934228852126) Active Condition Jul 19 4 Entered By: ALY RILEY Comment: Entered automatically through [employer] Problem List documentation program [facility] GERD - Gastro-Esophagea l Reflux Disease (SCT 639739910) Active Condition [facility] Insomnia (SCT 604990992) Active Condition [facility] Irritable Bowel Syndrome (SCT 90937346) Active Condition [facility] Obstructive Sleep Apnea of Adult (SCT 9160913651245) Active Condition [facility] Polyp Colon (SCT 74943044) Active Condition [facility] Diagnosis: ICD-10-CM F43.12 Post-traumatic stress disorder, chronic Active Diagnosis [facility] Diagnosis: ICD-10-CM K58.9 Irritable bowel syndrome without diarrhea Active Diagnosis [facility] Diagnosis: ICD-10-CM H93.13 Tinnitus, bilateral Active Diagnosis [facility] Diagnosis: ICD-10-CM I10 Essential (primary) hypertension Active Diagnosis [facility] Diagnosis: ICD-10-CM K58.2 Mixed irritable bowel syndrome Active Diagnosis [facility] Diagnosis: ICD-10-CM Z01.118 Encntr for exam of ears and hearing w oth abnormal findings Active Diagnosis [facility] Diagnosis: ICD-10-CM K63.5 Polyp of colon Active Diagnosis [facility] Medications Combined list of outpatient medications from Department of Defense and Veterans [facility] facilities.Medications provided include 1) outpatient medications from the last 15 months, and 2) patient-reported medications. Medication Details Route Status Patient Instructions Prescription Expires Prescription Number Last Dispense Date Ordering Provider Order Date Order Qty Source AMLODIPINE BESYLATE 2.5MG TAB AMLODIPI NE BESYLATE 2.5MG TAB Disconti nued TAKE ONE TABLET BY MOUTH EVERY DAY FOR BLOOD PRESSURE FOR BLOOD PRESSURE August 20, 2023 30 August 20, 2024 [id number] August 25, 2023 JEREMY MCFARLAND [facility] ORAL DISCONT INUED (EDIT) 08/20/2024 [id number] Hamzah MCFARLAND 2023 30 [facility] AMLODIPINE BESYLATE 5MG TAB AMLODIPI NE BESYLATE 5MG TAB Active TAKE ONE TABLET BY MOUTH EVERY DAY FOR BLOOD PRESSURE FOR BLOOD PRESSURE Sep 24, 2023 90 Sep 24, 2024 [id number] Oct 03, 2023 JEREMY MCFARLAND [facility] ORAL ACTIVE 09/24/2024 [id number] Hamzah MCFARLAND 2023 90 [facility] AMLODIPINE BESYLATE 5MG TAB AMLODIPI NE BESYLATE 5MG TAB Disconti nued TAKE ONE TABLET BY MOUTH EVERY DAY FOR BLOOD PRESSURE FOR BLOOD PRESSURE September 10, 2023 30 Sep 10, 2024 [id number] September 10, 2023 JEREMY MCFARLAND [facility] ORAL DISCONT INUED (EDIT) 09/10/2024 [id number] Hamzah MCFARLAND 2023 30 [facility] AMOXICILLIN TRIHYDRATE 500MG/CLAVU LANATE K 125MG TAB AMOXICIL RAYSHAWN TRIHYDRA TE 500MG/CL AVULANAT E K 125MG TAB Non-VA TAKE ONE TABLET EVERY DAY NEEDED Jul 15, 2023 Non-VA Document ed by: JEREMY MCFARLAND Document ed at: [facility] ACTIVE Hamzah MCFARLAND 2023 [facility] AMPHETAMINE /DEXTROAMPH ETAMINE RESIN COMPLEX 30MG CAP,SA AMPHETAM INE/DEXT ROAMPHET AMINE RESIN COMPLEX 30MG CAP,SA TAKE ONE CAPSULE BY MOUTH EVERY MORNING FOR ATTENTIO N FOR ATTENTIO N Oct 06, 2023 28 Nov 05, 2023 [id number] Oct 06, 2023 MARTHA DIAMOND [facility] ORAL 11/05/2023 [id number] Da DIAMOND 2023 28 [facility] AMPHETAMINE /DEXTROAMPH ETAMINE RESIN COMPLEX 30MG CAP,SA AMPHETAM INE/DEXT ROAMPHET AMINE RESIN COMPLEX 30MG CAP,SA TAKE ONE CAPSULE BY MOUTH EVERY MORNING FOR ATTENTIO N FOR ATTENTIO N September 01, 2023 28 Oct 01, 2023 [id number] September 01, 2023 MARTHA DIAMOND [facility] ORAL 10/01/2023 [id number] Da DIAMOND 2023 28 [facility] AMPHETAMINE /DEXTROAMPH ETAMINE RESIN COMPLEX 30MG CAP,SA AMPHETAM INE/DEXT ROAMPHET AMINE RESIN COMPLEX 30MG CAP,SA Non-VA TAKE 1 CAPSULE BY MOUTH EVERY DAY Jul 15, 2023 Non-VA Document ed by: JEREMY MCFARLAND Document ed at: [facility] ORAL ACTIVE Hamzah MCFARLAND 2023 [facility] CETIRIZINE HCL 10MG TAB CETIRIZI NE HCL 10MG TAB Active TAKE ONE TABLET BY MOUTH EVERY DAY FOR ALLERGIE S FOR ALLERGIE S Jul 15, 2023 90 Jul 15, 2024 [id number] Oct 03, 2023 JEREMY MCFARLAND [facility] ORAL ACTIVE 07/15/2024 [id number] Hamzah MCFARLAND 2023 90 [facility] CIPROFLOXAC IN HCL 500MG TAB CIPROFLO XACIN HCL 500MG TAB Non-VA TAKE ONE TABLET BY MOUTH EVERY DAY NEEDED Jul 15, 2023 Non-VA Document ed by: JEREMY MCFARLAND Document ed at: [facility] ORAL ACTIVE Hamzah MCFARLAND 2023 [facility] CYCLOBENZAP RINE HCL 10MG TAB CYCLOBEN ZAPRINE HCL 10MG TAB Non-VA TAKE ONE TABLET BY MOUTH TWICE A DAY NEEDED Jul 15, 2023 Non-VA Document ed by: JEREMY MCFARLAND Document ed at: [facility] ORAL ACTIVE Hamzah MCFARLAND 2023 [facility] DICLOFENAC NA 50MG TAB,EC DICLOFEN AC NA 50MG TAB,EC Active TAKE ONE TABLET BY MOUTH THREE TIMES A DAY NEEDED FOR PAIN FOR PAIN Jul 15, 2023 90 Jul 15, 2024 [id number] Jul 15, 2023 JEREMY MCFARLAND [facility] ORAL ACTIVE 07/15/2024 [id number] Hamzah MCFARLAND 2023 90 [facility] DICYCLOMINE CAP,ORAL DICYCLOM INE CAP,ORAL Non-VA TAKE BY MOUTH EVERY DAY Jul 15, 2023 Non-VA Document ed by: JEREMY MCFARLAND Document ed at: [facility] ORAL ACTIVE Hamzah MCFARLAND 2023 [facility] DICYCLOMINE HCL 10MG CAP DICYCLOM INE HCL 10MG CAP Active TAKE ONE CAPSULE BY MOUTH THREE TIMES A DAY NEEDED ABDOMINA L CRAMPING ABDOMINA L CRAMPING Aug 09, 2023 90 Aug 09, 2024 [id number] August 11, 2023 HAYLEY BELTRAN [facility] ORAL ACTIVE 08/09/2024 [id number] Brigida BELTRAN 2023 90 [facility] FLUTICASONE PROPIONATE 50MCG/SPRAY SOLN,NASAL, 16GM FLUTICAS ONE PROPIONA TE 50MCG/SP RAY SOLN,YUE AL,16GM Active SPRAY 2 SPRAYS IN EACH NOSTRIL EVERY DAY FOR ALLERGIE S FOR ALLERGIE S Jul 15, 2023 3 Jul 15, 2024 [id number] Jul 15, 2023 JEREMY MCFARLAND [facility] NASAL ACTIVE 07/15/2024 [id number] Hamzah MCFARLAND 2023 3 [facility] HYDROXYZINE HCL 25MG TAB HYDROXYZ INE HCL 25MG TAB Non-VA TAKE ONE TABLET BY MOUTH PRN Jul 15, 2023 Non-VA Document ed by: JEREMY MCFARLAND Document ed at: [facility] ORAL ACTIVE Hamzah MCFARLAND 2023 [facility] HYOSCYAMINE SO4 0.125MG TAB HYOSCYAM INE SO4 0.125MG TAB Non-VA TAKE TWO TABLETS BY MOUTH THREE TIMES A DAY Jul 15, 2023 Non-VA Document ed by: JEREMY MCFARLAND Document ed at: [facility] ORAL ACTIVE Hamzah MCFARLAND 2023 [facility] LINACLOTIDE 145MCG CAP LINACLOT NAOMY 145MCG CAP Non-VA TAKE 1 CAPSULE BY MOUTH EVERY DAY Jul 15, 2023 Non-VA Document ed by: JEREMY MCFARLAND Document ed at: [facility] ORAL ACTIVE Hamzah MCFARLAND 2023 [facility] LORAZEPAM 1MG TAB LORAZEPA M 1MG TAB Active TAKE ONE TABLET BY MOUTH EVERY DAY NEEDED FOR ANXIETY MAY TAKE HALF TABLET FOR ANXIETY September 01, 2023 30 Mar 03, 2024 [id number] September 01, 2023 MARTHA DIAMOND [facility] ORAL ACTIVE 03/03/2024 [id number] Da DIAMOND 2023 30 [facility] LORAZEPAM 1MG TAB LORAZEPA M 1MG TAB Non-VA TAKE ONE TABLET BY MOUTH AT BEDTIME Jul 15, 2023 Non-VA Document ed by: JEREMY MCFARLAND Document ed at: [facility] ORAL ACTIVE Hamzah MCFARLAND 2023 [facility] OMEPRAZOLE 20MG CAP,EC OMEPRAZO LE 20MG CAP,EC Active TAKE ONE CAPSULE BY MOUTH TWICE A DAY NEEDED FOR HEARTBUR N FOR HEARTBUR N Jul 15, 2023 180 Jul 15, 2024 [id number] Jul 15, 2023 JEREMY MCFARLAND [facility] ORAL ACTIVE 07/15/2024 [id number] Hamzah MCFARLAND 2023 180 [facility] POLYETHYLEN E GLYCOL 3350 PWDR,ORAL POLYETHY CHRISTINA GLYCOL 3350 PWDR,ORA L Active TAKE 17 GRAMS BY MOUTH EVERY MORNING FOR CONSTIPA TION FOR CONSTIPA TION Aug 09, 2023 1020 Aug 09, 2024 [id number] August 12, 2023 HAYLEY BELTRAN [facility] ORAL ACTIVE 08/09/2024 [id number] Brigida BELTRAN 2023 1020 [facility] PRAZOSIN HCL 2MG CAP PRAZOSIN HCL 2MG CAP Active TAKE THREE CAPSULES BY MOUTH AT BEDTIME FOR NIGHTMAR ES MAY REDUCE TO 4 MG IF LIGHTHEA DED FOR NIGHTMAR ES Oct 06, 2023 270 Oct 06, 2024 [id number] Oct 07, 2023 MARTHA DIAMOND [facility] ORAL ACTIVE 10/06/2024 [id number] Da DIAMOND 2023 270 [facility] PRAZOSIN HCL 2MG CAP PRAZOSIN HCL 2MG CAP Disconti nued TAKE TWO CAPSULES BY MOUTH AT BEDTIME FOR NIGHTMAR ES FOR NIGHTMAR ES September 01, 2023 180 September 01, 2024 [id number] September 02, 2023 MARTHA DIAMOND [facility] ORAL DISCONT INUED (EDIT) 09/01/2024 [id number] Da DIAMOND 2023 180 [facility] PRAZOSIN HCL 2MG CAP PRAZOSIN HCL 2MG CAP Non-VA TAKE 1 CAPSULE BY MOUTH AT BEDTIME Jul 15, 2023 Non-VA Document ed by: JEREMY MCFARLAND Document ed at: [facility] ORAL ACTIVE Hamzah MCFARLAND 2023 [facility] SILDENAFIL CITRATE 50MG TAB SILDENAF IL CITRATE 50MG TAB Active TAKE ONE TABLET BY MOUTH ONCE NEEDED FOR ERECTILE DYSFUNCT ION * DO NOT TAKE WITHIN 2 HOURS OF PRAZOSIN USE FOR ERECTILE DYSFUNCT ION September 03, 2023 18 September 03, 2024 [id number] September 07, 2023 MARTHA DIAMOND [facility] ORAL ACTIVE 09/03/2024 [id number] Da DIAMOND 2023 18 [facility] TADALAFIL TAB TADALAFI L TAB Non-VA TAKE 5MG BY MOUTH PRN Jul 15, 2023 Non-VA Document ed by: JEREMY MCFARLAND Document ed at: [facility] ORAL ACTIVE Hamzah MCFARLAND 2023 [facility] TRAZODONE HCL 50MG TAB TRAZODON E HCL 50MG TAB Active TAKE 1-2 TABLETS BY MOUTH AT BEDTIME FOR SLEEP FOR SLEEP Oct 06, 2023 180 Oct 06, 2024 [id number] Oct 07, 2023 MARTHA DIAMOND [facility] ORAL ACTIVE 10/06/2024 [id number] Da DIAMOND T 2023 180 [facility] TRAZODONE HCL 50MG TAB TRAZODON E HCL 50MG TAB Disconti nued TAKE ONE TABLET BY MOUTH AT BEDTIME FOR SLEEP FOR SLEEP September 01, 2023 90 September 01, 2024 [id number] September 02, 2023 MARTHA DIAMOND [facility] ORAL DISCONT INUED (EDIT) 09/01/2024 [id number] Da DIAMOND 2023 90 [facility] TRAZODONE HCL 50MG TAB TRAZODON E HCL 50MG TAB Non-VA TAKE ONE TABLET BY MOUTH AT BEDTIME Jul 15, 2023 Non-VA Document ed by: JEREMY MCFARLAND Document ed at: [facility] ORAL ACTIVE Hamzah MCFARLAND 2023 [facility] VENLAFAXINE HCL 150MG 24HR CAP,SA VENLAFAX INE HCL 150MG 24HR CAP,SA Active TAKE ONE CAPSULE BY MOUTH EVERY MORNING FOR MOOD FOR MOOD September 01, 2023 90 September 01, 2024 [id number] September 02, 2023 MARTHA DIAMOND [facility] ORAL ACTIVE 09/01/2024 [id number] Da DIAMOND 2023 90 [facility] VENLAFAXINE HCL 150MG 24HR CAP,SA VENLAFAX INE HCL 150MG 24HR CAP,SA Non-VA TAKE 1 CAPSULE BY MOUTH EVERY DAY Jul 15, 2023 Non-VA Document ed by: JEREMY MCFARLAND Document ed at: [facility] ORAL ACTIVE Hamzah MCFARLAND 2023 [facility] Immunizations Combined list of available immunizations from the Department of Defense and Veterans Affairs facilities. Immunization Series Date Given Administered By Site Reaction Lot Number CVX Code Drug Student Advisor Status Comments Source INFLUENZA, INJECTABLE, QUADRIVALENT, PRESERVATIVE FREE 2019 150 complet ed [facility] TDAP 2019 115 complet ed [facility] INFLUENZA, INJECTABLE, QUADRIVALENT, PRESERVATIVE FREE 2018 150 complet ed [facility] INFLUENZA, INJECTABLE, QUADRIVALENT, PRESERVATIVE FREE 2015 150 complet ed [facility] INFLUENZA, INJECTABLE, QUADRIVALENT, PRESERVATIVE FREE 2014 150 complet ed [facility] INFLUENZA, INJECTABLE, QUADRIVALENT, PRESERVATIVE FREE 2013 150 complet ed [facility] TDAP 2013 115 complet ed [facility] INFLUENZA, SEASONAL, INJECTABLE, PRESERVATIVE FREE 2009 140 complet ed [facility] HEP A-HEP B 2007 104 complet ed [facility] HEP A-HEP B 2007 104 complet ed [facility] IPV 2007 10 complet ed [facility] TYPHOID, UNSPECIFIED FORMULATION 2007 91 complet ed [facility] MENINGOCOCCAL MPSV4 2007 32 complet ed [facility] TDAP 2007 115 complet ed [facility] INFLUENZA, UNSPECIFIED FORMULATION 2006 88 complet ed [facility] INFLUENZA, UNSPECIFIED FORMULATION 2005 88 complet ed [facility] TD (ADULT), 2 LF TETANUS TOXOID, PRESERVATIVE FREE, ADSORBED 1999 09 complet ed [facility] Results Combined list of recent chemistry, hematology and other laboratory results from Department of Defense and Veterans Affairs, ranging from 15 months to all on record, depending upon the facility. Order Name Results Value Reference Range Date Interpretation Specimen Comments Source BASIC METABOLIC PANEL+MG CREATININE [MASS/VOLUM E] IN SERUM OR PLASMA 0.9 mg/dL 0.7 - 1.2 07/14 Specimen Type: PLASMA No comment entered. Ordering Provider: KRYS MCFARLAND Report Released Date/Time: Jul 15, 2023 09:14 AM Reporting Lab: [facility] [phone] Performing Lab: [facility] [address] [facility] BASIC METABOLIC PANEL+MG UREA NITROGEN [MASS/VOLUM E] IN SERUM OR PLASMA 17 mg/dL 8 - 26 07/14 Specimen Type: PLASMA No comment entered. Ordering Provider: KRYS MCFARLAND Report Released Date/Time: Jul 15, 2023 09:14 AM Reporting Lab: [facility] [address] Performing Lab: [facility] [address] [facility] BASIC METABOLIC PANEL+MG GLUCOSE [MASS/VOLUM E] IN SERUM OR PLASMA 86 mg/dL 70 - 100 07/14 Specimen Type: PLASMA No comment entered. Ordering Provider: KRYS MCFARLAND Report Released Date/Time: Jul 15, 2023 09:14 AM Reporting Lab: [facility] [address] Performing Lab: [facility] [address] [place] [facility] BASIC METABOLIC PANEL+MG SODIUM [MOLES/VOLU ME] IN SERUM OR PLASMA 139 mmol/L 136 - 145 07/14 Specimen Type: PLASMA No comment entered. Ordering Provider: KRYS MCFARLAND Report Released Date/Time: Jul 15, 2023 09:14 AM Reporting Lab: [facility] [address] Performing Lab: [facility] [address] [place] [facility] BASIC METABOLIC PANEL+MG POTASSIUM [MOLES/VOLU ME] IN SERUM OR PLASMA 3.9 mmol/L 3.5 - 5.1 07/14 Specimen Type: PLASMA No comment entered. Ordering Provider: KRYS MCFARLAND Report Released Date/Time: Jul 15, 2023 09:14 AM Reporting Lab: [facility] [address] Performing Lab: [facility] [address] [place] [facility] BASIC METABOLIC PANEL+MG CHLORIDE [MOLES/VOLU ME] IN SERUM OR PLASMA 106 mmol/L 98 - 107 07/14 Specimen Type: PLASMA No comment entered. Ordering Provider: KRYS MCFARLAND Report Released Date/Time: Jul 15, 2023 09:14 AM Reporting Lab: [facility] [address] Performing Lab: [facility] [address] [place] [facility] BASIC METABOLIC PANEL+MG CARBON DIOXIDE, TOTAL [MOLES/VOLU ME] IN SERUM OR PLASMA 26 mmol/L 22 - 29 07/14 Specimen Type: PLASMA No comment entered. Ordering Provider: KRYS MCFARLAND Report Released Date/Time: Jul 15, 2023 09:14 AM Reporting Lab: [facility] [address] Performing Lab: [facility] [address] [place] [facility] BASIC METABOLIC PANEL+MG CALCIUM [MASS/VOLUM E] IN SERUM OR PLASMA 9.5 mg/dL 8.4 - 10.2 07/14 Specimen Type: PLASMA No comment entered. Ordering Provider: KRYS MCFARLAND Report Released Date/Time: Jul 15, 2023 09:14 AM Reporting Lab: [facility] [address] Performing Lab: [facility] [address] [place] [facility] BASIC METABOLIC PANEL+MG MAGNESIUM [MASS/VOLUM E] IN SERUM OR PLASMA 2.2 mg/dL 1.6 - 2.6 07/14 Specimen Type: PLASMA No comment entered. Ordering Provider: KRYS MCFARLAND Report Released Date/Time: Jul 15, 2023 09:14 AM Reporting Lab: [facility] [address] Performing Lab: [facility] [address] [place] [facility] BASIC METABOLIC PANEL+MG ANION GAP IN SERUM OR PLASMA 7 mmol/L 5 - 15 07/14 Specimen Type: PLASMA No comment entered. Ordering Provider: KRYS MCFARLAND Report Released Date/Time: Jul 15, 2023 09:14 AM Reporting Lab: [facility] [address] Performing Lab: [facility] [address] [place] [facility] BASIC METABOLIC PANEL+MG GLOMERULAR FILTRATION RATE/1.73 SQ M.PREDICTED [VOLUME RATE/AREA] IN SERUM, PLASMA OR BLOOD BY CREATININE- BASED FORMULA (CKD-EPI 2020) >90 60 07/14 Specimen Type: PLASMA No comment entered. Ordering Provider: KRYS MCFARLAND Report Released Date/Time: Jul 15, 2023 09:14 AM Reporting Lab: [facility] [address] Performing Lab: [facility] [address] [place] [facility] CBC LEUKOCYTES [#/VOLUME] IN BLOOD BY AUTOMATED COUNT 6.44 10*3/u L 4.0 - 11.0 07/14 Specimen Type: BLOOD No comment entered. Ordering Provider: KRYS MCFARLAND Report Released Date/Time: Jul 15, 2023 09:14 AM Reporting Lab: [facility] [address] Performing Lab: [facility] [address] [place] [facility] CBC ERYTHROCYTE S [#/VOLUME] IN BLOOD BY AUTOMATED COUNT 5.44 10*6/u L 4.6 - 6.2 07/14 Specimen Type: BLOOD No comment entered. Ordering Provider: KRYS MCFARLAND Report Released Date/Time: Jul 15, 2023 09:14 AM Reporting Lab: [facility] [address] Performing Lab: [facility] [address] [place] [facility] CBC HEMOGLOBIN [MASS/VOLUM E] IN BLOOD 16.4 g/dL 13.5 - 17.9 07/14 Specimen Type: BLOOD No comment entered. Ordering Provider: KRYS MCFARLAND Report Released Date/Time: Jul 15, 2023 09:14 AM Reporting Lab: [facility] [address] Performing Lab: [place] [address] [place] [facility] CBC HEMATOCRIT [VOLUME FRACTION] OF BLOOD BY AUTOMATED COUNT 45.8 41 - 54 07/14 Specimen Type: BLOOD No comment entered. Ordering Provider: KRYS MCFARLAND Report Released Date/Time: Jul 15, 2023 09:14 AM Reporting Lab: [facility] [address] Performing Lab: [place] [phone] [place] [facility] CBC MCV [ENTITIC VOLUME] BY AUTOMATED COUNT 84.2 fL 80 - 100 07/14 Specimen Type: BLOOD No comment entered. Ordering Provider: KRYS MCFARLAND Report Released Date/Time: Jul 15, 2023 09:14 AM Reporting Lab: [facility] [address] Performing Lab: [facility] [address] [place] [facility] CBC MCH [ENTITIC MASS] BY AUTOMATED COUNT 30.1 pg 27 - 33 07/14 Specimen Type: BLOOD No comment entered. Ordering Provider: KRYS MCFARLAND Report Released Date/Time: Jul 15, 2023 09:14 AM Reporting Lab: [facility] [address] Performing Lab: [facility] [address] [place] [facility] CBC MCHC [MASS/VOLUM E] BY AUTOMATED COUNT 35.8 g/dL 32.0 - 37.5 07/14 Specimen Type: BLOOD No comment entered. Ordering Provider: KRYS MCFARLAND Report Released Date/Time: Jul 15, 2023 09:14 AM Reporting Lab: [facility] [address] Performing Lab: [place] [phone] [place] [facility] CBC PLATELETS [#/VOLUME] IN BLOOD BY AUTOMATED COUNT 208 10*3/u L 150 - 400 07/14 Specimen Type: BLOOD No comment entered. Ordering Provider: KRYS MCFARLAND Report Released Date/Time: Jul 15, 2023 09:14 AM Reporting Lab: [facility] [address] Performing Lab: [facility] [address] [place] [facility] CBC PLATELET MEAN VOLUME [ENTITIC VOLUME] IN BLOOD BY AUTOMATED COUNT 8.9 fL 7.4 - 10.4 07/14 Specimen Type: BLOOD No comment entered. Ordering Provider: KRYS MCFARLAND Report Released Date/Time: Jul 15, 2023 09:14 AM Reporting Lab: [facility] [address] Performing Lab: [facility] [address] [facility] CBC ERYTHROCYTE DISTRIBUTIO N WIDTH [RATIO] BY AUTOMATED COUNT 11.9 11.5 - 14.5 07/14 Specimen Type: BLOOD No comment entered. Ordering Provider: KRYS MCFARLAND Report Released Date/Time: Jul 15, 2023 09:14 AM Reporting Lab: [facility] [address] Performing Lab: [facility] [address] [place] [facility] HEMOGLOBI N A1C HEMOGLOBIN A1C/HEMOGLO BIN.TOTAL IN BLOOD 5.2 4.0 - 6.0 07/14 Specimen Type: BLOOD Comment: Values obtained from A1C measurement s can vary. For typical A1C assays, a reported value of 7.0 could actually be between 6.7 and 7.3 if measured by a reference method. A reported value of 9.0 could actually be between 8.7 and 9.3. Ref: [email or web address]://[email or web address] ngsp.org/[place] Pdata.asp Ordering Provider: KRYS MCFARLAND Report Released Date/Time: Jul 15, 2023 09:14 AM Reporting Lab: [facility] [address] Performing Lab: [facility] [address] [place] [facility] LIPID PANEL,NON -FASTING CHOLESTEROL [MASS/VOLUM E] IN SERUM OR PLASMA 153 mg/dL <199 - 199 07/14 Specimen Type: PLASMA No comment entered. Ordering Provider: KRYS MCFARLAND Report Released Date/Time: Jul 15, 2023 09:14 AM Reporting Lab: [facility] [address] Performing Lab: [facility] [address] [place] [facility] LIPID PANEL,NON -FASTING CHOLESTEROL IN HDL [MASS/VOLUM E] IN SERUM OR PLASMA 38 mg/dL 40 07/14 L Specimen Type: PLASMA No comment entered. Ordering Provider: KRYS MCFARLAND Report Released Date/Time: Jul 15, 2023 09:14 AM Reporting Lab: [facility] [address] Performing Lab: [facility] [address] [place] [facility] LIPID PANEL,NON -FASTING CHOLESTEROL IN LDL [MASS/VOLUM E] IN SERUM OR PLASMA BY CALCULATION 94 mg/dL <99 - 99 07/14 Specimen Type: PLASMA No comment entered. Ordering Provider: KRYS MCFARLAND Report Released Date/Time: Jul 15, 2023 09:14 AM Reporting Lab: [facility] [id number] Performing Lab: [facility] [id number] [place] [facility] LIPID PANEL,NON -FASTING CHOLESTEROL IN VLDL [MASS/VOLUM E] IN SERUM OR PLASMA BY CALCULATION 21 mg/dL <29 - 29 07/14 Specimen Type: PLASMA No comment entered. Ordering Provider: KRYS MCFARLAND Report Released Date/Time: Jul 15, 2023 09:14 AM Reporting Lab: [facility] [id number] Performing Lab: [facility] [id number] [place] [facility] LIPID PANEL,NON -FASTING CHOLESTEROL NON HDL [MASS/VOLUM E] IN SERUM OR PLASMA 115 mg/dL <129 - 129 07/14 Specimen Type: PLASMA No comment entered. Ordering Provider: KRYS MCFARLAND Report Released Date/Time: Jul 15, 2023 09:14 AM Reporting Lab: [facility] [id number] Performing Lab: [facility] [id number] [facility] LIPID PANEL,NON -FASTING TRIGLYCERID E [MASS/VOLUM E] IN SERUM OR PLASMA 104 mg/dL <149 - 149 07/14 Specimen Type: PLASMA No comment entered. Ordering Provider: KRYS MCFARLAND Report Released Date/Time: Jul 15, 2023 09:14 AM Reporting Lab: [facility] [id number] Performing Lab: [facility] [id number] [facility] Vital Signs Combined list of inpatient and outpatient Vital Signs from Department of Defense and Veterans Affairs, ranging from 12 months to all on record, depending upon the facility. Vital Sign Value Date Comments Source Encounters Combined list of: 1) Encounters from Department of Veterans Affairs facilities going back up to thelast 18 months. 2) Encounters from the Department of Defense facilities going back up to 280 months. Location Location Details Encounter Type Encounter Number Reason For Visit Attending Provider ADM Date DC Date Status Disposition Source [facility] Outpatient Encounter [id number] 07/16 [facility] Outpatient Encounter [id number] 07/14 [facility] OFFICE O/P EST HI 40 MIN [id number] Diagnos is: ICD-10- CM K63.5 Polyp of colon<b r/> ME YOU MCFARLAND 07/14 [facility] [place] [place] [id number] Diagnos is: ICD-10- CM Z01.118 Encntr for exam of ears and hearing w oth abnorma l finding s
MARIANA CHRIS 08/05 [facility] OFFICE O/P NEW MOD 45 MIN [id number] Diagnos is: ICD-10- CM K58.2 Mixed irritab le bowel syndrom e
BECKY HASSAN 08/08 [place] [facility] [place] [facility] Outpatient Encounter [id number] 08/12 [place] [facility] [place] [facility] Outpatient Encounter [id number] BLAYNEGEOVANY Cho 08/18 [place] [facility] [place] [facility] OFFICE O/P EST MOD 30 MIN [id number] Diagnos is: ICD-10- CM I10 Essenti al (primar y) hyperte nsion<b r/> ME YOU MCFARLAND 08/19 [place] [facility] [place] [facility] Outpatient Encounter [id number] 08[facility]23 [facility] [place] [facility] Out[facility] Encounter [id number] 08/25 [facility] [place] [facility] Outpatient Encounter [id number] 08/25 [facility] [place] [facility] Outpatient Encounter [id number] Girish BROOKS 08[facility]25 [facility] [place] [facility] Out[facility] Encounter [id number] 08/31 [facility] [place] [facility] OFF[facility] O/P EST MOD 30 MIN [id number] Diagnos is: ICD-10- CM F43.12 Post-tr aumatic stress disorde r, chronic
DEVORAH DIAMOND 08/31 [facility] [place] [facility] Out[facility] Encounter [id number] 09/08 [facility] [place] [facility] OFF[facility] O/P EST LOW 20 MIN [id number] Diagnos is: ICD-10- CM I10 Essenti al (primar y) hyperte nsion<b r/> ME YOU MCFARLAND 09/09 [facility] OFFICE O/P EST LOW 20 MIN [id number] Diagnos is: ICD-10- CM I10 Essenti al (primar y) hyperte nsion<b r/> BRUNA,ME YOU CLEMENS 09/23 [facility] Outpatient Encounter [id number] 09/26 [facility] CONFORMITY EVALUATION [id number] Diagnos is: ICD-10- CM H93.13 Tinnitu s, bilater al
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
Sandra MARKS 09/30 [facility] OFFICE O/P EST MOD 30 MIN [id number] Diagnos is: ICD-10- CM F43.12 Post-tr aumatic stress disorde r, chronic
DEVORAH DIAMOND T 10/05 [facility] Outpatient Encounter [id number] 10/11 [facility] Outpatient Encounter [id number] 10/19 [facility] Social History Combined list of available smoking, tobacco, and other social history from Department of Defense and Veterans Affairs facilities. Social History Type Response Date Comment Sourc e Tobacco smoking status NHIS ME-TOBACCO FORMER USER 07/15/2023 [facility] History of tobacco use ME-TOBACCO QUIT 1 5 YRS OR MORE 07/15/2023 [facility] Plan of Care List of future care activities from Department of [facility] Affairs facilities. Additional future care activities may be listed in the Assessment and Plan section. Date/Time Care Activity Care Activity Detail Facili ty 11/19/2023 AMBULATORY - NONE AMBULATORY - NONE [facility] 11/26/2023 AMBULATORY - MEDICINE AMBULATORY - MEDICI [facility] 12/20/2023 AMBULATORY - PSYCHIATRY AMBULATORY - PSYC HIATRY [facility] 02/07/2024 AMBULATORY - MEDICINE AMBULATORY - MEDICI [facility]
== END 2023-11-09 19:04 | disposition home or self-care (01) ==
LOC: LKVREF 19:05
PROVIDERS: PCP Family Medicine; Visit Provider Emergency Medicine
DX: Z01.818 Encounter for other preprocedural examination (principal)
CPT/HCPCS: 80048